=== PATIENT | female | born 1940 | race Caucasian/White ===

== ENCOUNTER 2019-11-09 21:39 | Emergency (ER) | payer MEDICARE, OTHER ==
[~2019-11-09] VITALS: Ht 162.6 cm; Wt 72.6 kg
[2019-11-09] MEDS ORDERED: KETOROLAC TROMETH 60MG/2ML VIAL IM ONE (22:30)
[2019-11-09] MEDS ORDERED: ONDANSETRON HCL 4 MG/2 ML VIAL IV ONE (23:45)
[2019-11-09] MEDS ORDERED: MORPHINE SULF INJ 2 MG/ML SYRINGE 1ML IV ONE (23:45)
[2019-11-09 23:50] LABS: Basophils # (auto) 0 10 ^3/uL (0-0.2); Basophils % (auto) 0.3 % (0.0-2.0); Eosinophils # (auto) 0 10 ^3/uL (0-0.8); Hemoglobin 13.2 g/dL (12.2-16.2); Lymphocytes # (auto) 0.8 10 ^3/uL (0.4-5.4); Lymphocytes % (auto) 6.7 % (10.0-50.0); Mean Corpuscular Hemoglobin 26.8 pg (28.0-32.0); Mean Corpuscular Hgb Conc. 32.2 g/dL (32.0-36.0); Mean Corpuscular Volume 83.3 fL (80.0-100.0); Monocytes % (auto) 16.6 % (0.0-12.0); Neutrophils # (auto) 9.4 10 ^3/uL (1.6-8.6); Neutrophils % (auto) 76.4 % (37.0-80.0); Platelet Count (auto) 464 10^3/uL (140-450); Red Blood Cells 4.92 10^6/uL (4.0-5.20); Red Cell Distribution Width 15.5 % (11.8-14.3); White Blood Cell 12.3 10^3/uL (4.4-10.8)
[2019-11-10 00:05] LABS: INR 1.08 (0.9-1.15)
[2019-11-10 00:09] LABS: Albumin 3.4 g/dL (3.4-5.0); BUN/Creatinine Ratio 30.6; Calcium 8.7 mg/dL (8.5-10.1)
[2019-11-10] MEDS: DOCUSATE SOD 100 MG CAP PO ONE ×2 (00:09→00:12)
[2019-11-10 00:12] LABS: Bilirubin, Total 0.7 mg/dL (0.2-1.0); Total Protein 7.5 g/dL (6.4-8.2)
[2019-11-10 00:16] LABS: Urine Bacteria FEW /hpf (None Seen); Urine Blood Negative /uL (Negative); Urine Hyaline Cast FEW /lpf (0 - 2); Urine Mucus FEW (None Seen); Urine Specific Gravity 1.032 (1.001-1.035); Urine WBC 4 /hpf (0 - 5)
[2019-11-10] MEDS ORDERED: IOHEXOL 350 MG/ML 100ML IJ ONE (00:27)
[2019-11-10 01:31] VITALS: BP 131/80
== END 2019-11-10 03:32 | disposition home or self-care (01) ==
LOC: EDBD 21:39 → ER 21:42
DX: M16.12 Unilateral primary osteoarthritis, left hip (principal); M41.85 Other forms of scoliosis, thoracolumbar region; K59.00 Constipation, unspecified; I70.0 Atherosclerosis of aorta; K43.9 Ventral hernia without obstruction or gangrene; R59.0 Localized enlarged lymph nodes; J43.8 Other emphysema; E78.5 Hyperlipidemia, unspecified; F17.210 Nicotine dependence, cigarettes, uncomplicated; Z90.49 Acquired absence of other specified parts of digestive tract
CPT/HCPCS: 36415; 71045; 71275; 73502; 73562; 74176; 80053; 81001; 84443; 85025; 85379; 85610; 96372; 96374; 96375; 99285; J1885; J2270; J2405; Q9967